=== PATIENT | female | born 1945 | race Caucasian/White ===

== ENCOUNTER 2017-06-13 09:14 | Emergency (ER) | payer SELFPAY ==
--- NOTE | 2017-06-13 09:22 | UC ---
Upper Extremity HPI - HPI Summary HPI Summary: 71 year old female presents with complains of severe right thumb swelling after cutting it with a knife. I will send her to the ER because she is positive for all 4 [place] signs. - History of Current Complaint Stated Complaint: RT THUMB INJ Time Seen by Provider: 06/13/17 09:21 Hx Obtained From: Patient Onset/Duration: Sudden Onset Severity Initially: Moderate Severity Currently: Moderate Pain Scale Used: 0-10 Numeric - 8 - Allergies/Home Medications Allergies/Adverse Reactions: Allergies Allergy/AdvReac Type Severity Reaction Status Date / Time No Known Allergies Allergy Verified 06/13/17 09:24 Home Medications: Home Medications Aspirin [Eq Aspirin] 325 mg PO DAILY 06/13/17 [History Confirmed 06/13/17] Ibuprofen [Ibuprofen 200 MG] 400 mg PO Q4H PRN 06/13/17 [History Confirmed 06/13] PMH/Surg Hx/FS Hx/Imm Hx Previously Healthy: Yes Review of Systems Constitutional: Negative Skin: Other - right thumb swelling/pain Eyes: Negative ENT: Negative Respiratory: Negative Cardiovascular: Negative Gastrointestinal: Negative Genitourinary: Negative Motor: Negative Neurovascular: Negative Musculoskeletal: Negative Neurological: Negative Psychological: Negative All Other Systems Reviewed And Are Negative: Yes Physical Exam Triage Information Reviewed: Yes Appearance: Pain Distress Eye Exam: Normal ENT Exam: Normal Dental Exam: Normal Neck exam: Normal Neck: Positive: 1 Respiratory Exam: Normal Cardiovascular Exam: Normal Abdominal Exam: Normal Musculoskeletal Exam: Normal Neurological Exam: Normal Psychological Exam: Normal Skin: Positive: Other - right humb swelling/pain Upper Extremity Course/Dx - Differential Dx/Diagnosis Provider Diagnoses: right thumb swelling/pain Discharge - Discharge Plan Condition: Stable Disposition: OTHER Discharge Disposition Comment: patient suggested to go to the ER. Patient Education Materials: Puncture Wound (ED), Wound Infection (ED), Abrasion (ED), Swollen Joint (ED) Referrals: No Primary Care Phys,NOPCP [Primary Care Provider] - Additional Instructions: patient suggested to go to er.
[2017-06-13 09:32] VITALS: BP 150/86
== END 2017-06-13 09:53 ==
LOC: UCCORT 09:14
DX: M79.89 Other specified soft tissue disorders (principal); M79.644 Pain in right finger(s)
CPT/HCPCS: 99202; G0463